=== PATIENT | female | born 1990 | race Caucasian/White ===

== ENCOUNTER 2017-04-23 16:57 | Emergency (ER) | payer MEDICAID ==
[~2017-04-23] VITALS: Ht 162.6 cm; Wt 64.0 kg
[~2017-04-23 16:57] MED LIST: ATOR20TA15 PO; NITR100C4 PO; VIST50CA PO; ZIPR20 PO; ZOLO25TA PO; iron infusion
[2017-04-23 17:50] VITALS: BP 114/56; PULSE 82; RESP 16; TEMP 98.8; O2SAT 100
--- NOTE | 2017-04-23 19:26 | PD ---
HPI Chief Complaint: Syncope/Near-Syncope Time Seen by Provider: 18:24 Travel History International Travel<30 days: No Contact w/Intl Traveler<30days: No Traveled to known affect area: No History of Present Illness HPI 26-year-old female was brought in by EMS for syncope. Patient has history of VSD with frequent syncopal episodes. Patient states that she usually had 3 syncopal episodes a week while she was . Patient had echocardiogram done by research instrumentation technician last year was found to have VSD. [place] Patient was advised to have surgery in the past however has not done so far. Patient states that she vaginal delivery about 4 months ago. Patient was advised to have HERBERTH done and surgery however has not done that so far. Patient was seen in emergency room a month ago and had a mandatory referral to research instrumentation technician for follow-up. Patient has not seen a research instrumentation technician since then. Patient had a single episode today. Patient states that she had dizziness and nausea and dry heaves and then pass out completely. Patient did not injure herself during episode. Patient has history of insulin-dependent diabetes on insulin pump, anemia. Patient states that she had echocardiogram done a few months ago in [place] and was negative for VSD. Patient denies any headache. Patient denies any neck pain. Patient denies any visual change. Patient denies any chest pain or short is of breath. Patient denies abdominal pain. Patient denies any focal weakness or numbness of extremity. PFSH Past Medical History Anemia: Yes Arthritis: Yes Bipolar Disorder: Yes Cardiovascular Problems: Yes (Vent septal Defect) Diabetes: Yes Patient Takes Glucophage: No Diminished Hearing: No Fibromyalgia: Yes Headaches: No Implanted Vascular Access Dvce: Yes (Port right 2017) Psychiatric: Yes (Hx of treatment for Bipolar Disorder and PTSD) ?: Not LMP: 04/17/17 : 3 Para: 3 Tubal Ligation: Yes (2017) Past Surgical History Section: Yes (X3) Cholecystectomy: Yes (2013) Insulin Pump: Yes Social History Alcohol Use: Yes (1/2 bottle liquor daily) Tobacco Use: No Substance Use: Yes Allergies-Medications (Allergen,Severity, Reaction): Coded Allergies: diphenhydramine (Verified Allergy, Severe, 03/27/17) sertraline (Verified Allergy, Severe, Hallucinations, 04/23/17) morphine (Verified Allergy, Unknown, hives, 03/27/17) Reported Meds & Prescriptions Reported Meds & Active Scripts Active Geodon (Ziprasidone) 20 Mg Cap 20 Mg PO BID Atorvastatin (Atorvastatin Calcium) 20 Mg Tab 20 Mg PO HS Reported [iron infusion] 1 Injection EVERY THREE MONTHS Vistaril (Hydroxyzine Pamoate) 50 Mg Cap 50 Mg PO TID Review of Systems General / Constitutional: No: Fever Eyes: No: Visual changes HENT: No: Headaches Cardiovascular: No: Chest Pain or Discomfort Respiratory: No: Shortness of Breath Gastrointestinal: No: Abdominal Pain Genitourinary: No: Dysuria Musculoskeletal: No: Pain Skin: No Rash Neurologic: Positive: Syncope, No: Weakness Psychiatric: No: Depression Endocrine: No: Polydipsia Hematologic/Lymphatic: No: Easy Bruising Physical Exam Narrative 26-year-old female with frequent syncopal episode. Reported history of VSD. Data Data Last Documented VS Vital Signs Date Time Temp Pulse Resp B/P (MAP) Pulse Ox O2 Delivery O2 Flow Rate FiO2 04/23/17 20:22 76 20 106/60 (75) 100 Room Air 04/23/17 17:50 98.8 Orders Orders Complete Blood Count With Diff (04/23/17 19:28) Basic Metabolic Panel (Bmp) (04/23/17 19:28) Iv Access Insert/Monitor (04/23/17 19:28) Ecg Monitoring (04/23/17 19:28) Oximetry (04/23/17 19:28) Electrocardiogram (04/23/17 ) Labs Laboratory Tests Test 04/23/17 19:50 White Blood Count 7.8 TH/MM3 Red Blood Count 4.04 MIL/MM3 Hemoglobin 11.3 GM/DL Hematocrit 34.5 % Mean Corpuscular Volume 85.6 FL Mean Corpuscular Hemoglobin 28.1 PG Mean Corpuscular Hemoglobin Concent 32.8 % Red Cell Distribution Width 13.0 % Platelet Count 319 TH/MM3 Mean Platelet Volume 9.4 FL Neutrophils (%) (Auto) 62.6 % Lymphocytes (%) (Auto) 24.5 % Monocytes (%) (Auto) 9.0 % Eosinophils (%) (Auto) 2.4 % Basophils (%) (Auto) 1.5 % Neutrophils # (Auto) 4.9 TH/MM3 Lymphocytes # (Auto) 1.9 TH/MM3 Monocytes # (Auto) 0.7 TH/MM3 Eosinophils # (Auto) 0.2 TH/MM3 Basophils # (Auto) 0.1 TH/MM3 CBC Comment DIFF FINAL Differential Comment Blood Urea Nitrogen 12 MG/DL Creatinine 0.68 MG/DL Random Glucose 270 MG/DL Calcium Level 8.4 MG/DL Sodium Level 138 MEQ/L Potassium Level 3.9 MEQ/L Chloride Level 103 MEQ/L Carbon Dioxide Level 28.9 MEQ/L Anion Gap 6 MEQ/L Estimat Glomerular Filtration Rate 104 ML/MIN MDM Medical Decision Making Medical Screen Exam Complete: Yes Emergency Medical Condition: Yes Medical Record Reviewed: Yes Interpretation(s) 21:25 PM. CBC within normal limit. BMP within normal limit. Glucose 270. Differential Diagnosis Differential diagnosis including vasovagal reaction, electrolyte imbalance, arrhythmia, TIA, CVA. Narrative Course 26-year-old female with frequent episodes of syncope. Reportedly history of VSD. I spoke with research instrumentation technician on-call today, Dr. carver. Advised to be follow-up with neurologist and research instrumentation technician. Diagnosis Primary Impression: Syncope Qualified Codes: R55 - Syncope and collapse Patient Instructions: General Instructions Additional Instructions: Advised patient not to drive. Follow-up with neurologist and therapist's assistant. Med/Other Pt SpecificInfo: No Change to Meds Disposition: 01 DISCHARGE HOME Condition: Stable Tee Santana MD Apr 23, 2017 19:26
[2017-04-23 20:20] LABS: AUTOMATED NEUTROPHIL # 4.9 TH/MM3 (1.8-7.7); BASOPHIL # 0.1 TH/MM3 (0-0.2); BASOPHIL % 1.5 % (0.0-2.0); EOSINOPHIL # 0.2 TH/MM3 (0-0.4); EOSINOPHIL % 2.4 % (0.0-4.0); HEMATOCRIT 34.5 % (35.0-46.0); HEMO FLAGS DIFF FINAL; LYMPH % 24.5 % (9.0-44.0); LYMPHOCYTE # 1.9 TH/MM3 (1.0-4.8); MEAN CELL VOLUME 85.6 FL (80.0-100.0); MEAN CORPUSCULAR HEMOGLOBIN 28.1 PG (27.0-34.0); MEAN CORPUSCULAR HGB CONC 32.8 % (32.0-36.0); NEUT % 62.6 % (16.0-70.0); PLATELET COUNT 319 TH/MM3 (150-450); RED BLOOD COUNT 4.04 MIL/MM3 (4.00-5.30); WHITE BLOOD COUNT 7.8 TH/MM3 (4.0-11.0)
[2017-04-23 20:22] VITALS: BP 106/60; PULSE 76; RESP 20; O2SAT 100
[2017-04-23 20:51] LABS: BICARBONATE 28.9 MEQ/L (21.0-32.0); POTASSIUM 3.9 MEQ/L (3.5-5.1)
--- NOTE | 2017-04-23 21:29 | EKG ---
Date Performed: 04/23/2017 Time Performed: 17:55:41 PTAGE: 26 years EKG: Sinus rhythm WITH SINUS ARRHYTHMIA POSSIBLE LEFT ATRIAL ENLARGEMENT BORDERLINE ECG PREVIOUS TRACING : 03/27/2017 22.49 Compared to prior tracing no significant change DOCTOR: Saeid Felipe Interpretating Date/Time 04/23/2017 21:27:30
== END 2017-04-23 22:20 | disposition home or self-care (01) ==
LOC: NEPD 16:57
DX: R55 Syncope and collapse (principal); Q21.0 Ventricular septal defect; R42 Dizziness and giddiness; R11.0 Nausea; I49.9 Cardiac arrhythmia, unspecified; E11.9 Type 2 diabetes mellitus without complications; D64.9 Anemia, unspecified; F31.9 Bipolar disorder, unspecified; M79.7 Fibromyalgia
CPT/HCPCS: 80048; 85025; 93005; 99284; J1642

== ENCOUNTER 2017-06-02 16:49 | Emergency (ER) | payer MEDICAID ==
[~2017-06-02] VITALS: Ht 149.9 cm; Wt 65.0 kg
[~2017-06-02 16:49] MED LIST changes: -NITR100C4 PO; -ZOLO25TA PO
[2017-06-02 16:56] VITALS: BP 115/66; PULSE 85; RESP 18; TEMP 98.7; O2SAT 99
[2017-06-02] MEDS ORDERED: INSULIN PUMP (17:02)
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
[2017-06-02] MEDS ORDERED: SODIUM CHLORIDE 0.9% FLUSH 10 ML FLUSH IVF PRN (17:15)
[2017-06-02 17:32] LABS: AUTOMATED NEUTROPHIL # 4.9 TH/MM3 (1.8-7.7); BASOPHIL % 0.7 % (0.0-2.0); EOSINOPHIL # 0.3 TH/MM3 (0-0.4); EOSINOPHIL % 3.7 % (0.0-4.0); HEMOGLOBIN 11.5 GM/DL (11.6-15.3); LYMPH % 16.1 % (9.0-44.0); LYMPHOCYTE # 1.1 TH/MM3 (1.0-4.8); MEAN CELL VOLUME 84.1 FL (80.0-100.0); MEAN CORPUSCULAR HEMOGLOBIN 26.9 PG (27.0-34.0); MEAN PLATELET VOLUME 9.1 FL (7.0-11.0); MONO % 10.1 % (0.0-8.0); MONOCYTE # 0.7 TH/MM3 (0-0.9); NEUT % 69.4 % (16.0-70.0); PLATELET COUNT 286 TH/MM3 (150-450); RED BLOOD COUNT 4.28 MIL/MM3 (4.00-5.30); RED CELL DISTRIBUTION WIDTH 14.4 % (11.6-17.2)
[2017-06-02 17:43] LABS: INTERNATIONAL NORMALIZED RATIO 1.1 RATIO
[2017-06-02 17:57] LABS: ALBUMIN 3.3 GM/DL (3.4-5.0); AST (GOT) 23 U/L (15-37); BICARBONATE 27.7 MEQ/L (21.0-32.0); BLOOD UREA NITROGEN 8 MG/DL (7-18); CALCIUM 8.2 MG/DL (8.5-10.1); CHLORIDE 108 MEQ/L (98-107); GLOMERULAR FILTRATION RATE 120 ML/MIN (>89); GLUCOSE,RANDOM 135 MG/DL (74-106); MAGNESIUM 1.6 MG/DL (1.5-2.5); SODIUM (NA) 140 MEQ/L (136-145)
[2017-06-02 17:58] LABS: ALT (GPT) 25 U/L (10-53)
[2017-06-02 18:02] LABS: ALKALINE PHOSPHATASE 97 U/L (45-117); TOTAL BILIRUBIN ADULT 0.3 MG/DL (0.2-1.0); TOTAL PROTEIN 7.6 GM/DL (6.4-8.2); TROPONIN I LESS THAN 0.02 NG/ML (0.02-0.05)
--- NOTE | 2017-06-02 18:18 | RADRPT ---
EXAM DATE/TIME: 06/02/2017 17:26 [facility] COMPARISON: CHEST SINGLE AP, March 27, 2017, 22:39. INDICATIONS : Chest pain. MEDICAL HISTORY : Anemia, Diabetes, Ventricular fibrillation. Not . SURGICAL HISTORY : Port placement. ENCOUNTER: Initial ACUITY: 1 day PAIN SCORE: 7/10 LOCATION: Bilateral chest FINDINGS: Single AP view of the chest. Right-sided [id number] remains in place. The lungs are clear. Cardiom ediastinal silhouette within normal limits. No evidence of pleural effusion or pneumothorax. CONCLUSION: No acute cardiopulmonary disease identified. Jese Jim MD on June 02, 2017 at 18:15 Board Certified Radiologist. This report was verified electronically.
[2017-06-02 20:13] VITALS: BP 121/63; TEMP 98.3
--- NOTE | 2017-06-03 07:35 | EKG ---
Date Performed: 06/02/2017 Time Performed: 17:00:31 PTAGE: 26 years EKG: Sinus rhythm NORMAL ECG NO PREVIOUS TRACING DOCTOR: Jeremiah Lira Interpretating Date/Time 06/03/2017 07:35:00
== END 2017-06-02 20:16 | disposition left against medical advice (07) ==
LOC: NEPC 16:49
DX: R55 Syncope and collapse (principal); R07.89 Other chest pain; E11.9 Type 2 diabetes mellitus without complications; Z79.4 Long term (current) use of insulin
CPT/HCPCS: 71010; 80053; 82550; 83735; 84484; 84703; 85025; 85610; 85730; 93005; 99285; J1642

== ENCOUNTER 2017-07-20 13:03 | Emergency (ER) | payer MEDICAID ==
[~2017-07-20] VITALS: Ht 149.9 cm; Wt 63.5 kg
[~2017-07-20 13:03] MED LIST changes: +INSULIN PUMP; -VIST50CA PO; -iron infusion
[2017-07-20 13:09] VITALS: BP 128/85; PULSE 100; RESP 14; TEMP 98.3; O2SAT 98
--- NOTE | 2017-07-20 14:04 | PD ---
HPI Chief Complaint: Medication Refill Request Time Seen by Provider: 13:33 Travel History International Travel<30 days: No Contact w/Intl Traveler<30days: No Traveled to known affect area: No History of Present Illness HPI 26-year-old female presents to the emergency department requesting a refill on insulin for her insulin pump. She just administered her last dose of insulin today, or to arrival, after her blood sugar check at home was 338. She says her primary care provider wrote her prescription wrong, her insulin run out sooner than normal. She denies symptoms of hyperglycemia. She has no other emergent medical complaints at this time. Denies chest pain, shortness of breath, abdominal pain, vomiting, fevers. Symptoms are mild in severity. No known aggravating or relieving factors. Onset prior to arrival. Duration approximately 2 hours. Primary care provider is [facility]. Allergies to Benadryl, morphine, sertraline. History of type 1 diabetes, ventral septal defect, severe anemia. Has no other medical complaints. No other modifying factors or associated signs and symptoms. PFSH Past Medical History Anemia: Yes Arthritis: Yes Asthma: Yes Bipolar Disorder: Yes Cardiovascular Problems: Yes Diabetes: Yes Patient Takes Glucophage: No Diminished Hearing: No Fibromyalgia: Yes Headaches: No Implanted Vascular Access Dvce: Yes (Port right 2017) Psychiatric: Yes (Hx of treatment for Bipolar Disorder and PTSD) Tetanus Vaccination: < 5 Years ?: Not LMP: 07/19/17 : 3 Para: 3 Tubal Ligation: Yes (2017) Past Surgical History Section: Yes (X3) Cholecystectomy: Yes (2013) Insulin Pump: Yes Social History Alcohol Use: Yes ("OCASSIONALLY) Tobacco Use: No Substance Use: No Allergies-Medications (Allergen,Severity, Reaction): Coded Allergies: diphenhydramine (Verified Allergy, Severe, 07/20/17) sertraline (Verified Allergy, Severe, Hallucinations, 07/20/17) morphine (Verified Allergy, Unknown, hives, 07/20/17) Reported Meds & Prescriptions Reported Meds & Active Scripts Active Geodon (Ziprasidone) 20 Mg Cap 20 Mg PO BID Reported [Insulin Pump] Review of Systems Except as stated in HPI: all other systems reviewed are Neg Physical Exam Narrative GENERAL: Well-nourished, well-developed female patient, in no acute distress SKIN: Warm and dry. HEAD: Atraumatic. Normocephalic. EYES: Pupils equal and round. No scleral icterus. No injection or drainage. ENT: Mucosa pink and moist. Airway patent. NECK: Trachea midline. CARDIOVASCULAR: Regular rate. RESPIRATORY: No accessory muscle use. GASTROINTESTINAL: Flat. MUSCULOSKELETAL: No obvious deformities. No clubbing. No cyanosis. No edema. NEUROLOGICAL: Awake and alert. Oriented 3. No obvious cranial nerve deficits. Motor grossly within normal limits. Normal speech. PSYCHIATRIC: Appropriate mood and affect; insight and judgment normal. Data Data Last Documented VS Vital Signs Date Time Temp Pulse Resp B/P (MAP) Pulse Ox O2 Delivery O2 Flow Rate FiO2 07/20/17 14:20 07/20/17 13:09 98.3 100 14 98 Orders Orders Ed Discharge Order (07/20/17 14:04) MDM Medical Decision Making Medical Screen Exam Complete: Yes Emergency Medical Condition: Yes Medical Record Reviewed: Yes Differential Diagnosis Medication refill, hyperglycemia, diabetes mellitus type 1 Narrative Course 26-year-old female with type 1 diabetes requesting refill on insulin for her insulin pump. BGM check in the ER is 141. Patient provided a written prescription for Humalog 1.45 units per hour via pump with an additional 120 units daily x30 days. Instructed patient to follow up with primary care provider. Patient verbalizes understanding and agreement with treatment plan. Patient is medically cleared and stable for discharge. Discussed reasons to return to the emergency department. Patient agrees with treatment plan. The patients vital signs are stable and the patient is stable for outpatient follow- up and treatment. Patient discharged home, stable and in no acute distress. Diagnosis Primary Impression: Medication refill Referrals: [employer] Primary Care Physician Patient Instructions: General Instructions, Medication Refill, ED Additional Instructions: Continue to check blood sugars as directed Insulin as prescribed Med/Other Pt SpecificInfo: Prescription(s) given Disposition: DISCHARGE HOME Condition: Stable Andie Ding Jul 20, 2017 14:04
== END 2017-07-20 14:20 | disposition home or self-care (01) ==
LOC: NEPD 13:03
DX: Z76.0 Encounter for issue of repeat prescription (principal); E10.8 Type 1 diabetes mellitus with unspecified complications
CPT/HCPCS: 99281

== ENCOUNTER 2017-08-12 10:01 | Emergency (ER) | payer MEDICAID ==
[~2017-08-12] VITALS: Ht 149.9 cm; Wt 67.0 kg
[~2017-08-12 10:01] MED LIST changes: -ATOR20TA15 PO
[2017-08-12 10:28] VITALS: BP 124/73; PULSE 119; RESP 17; TEMP 99; O2SAT 100
[2017-08-12] MEDS ORDERED: BACT800T5 PO (10:36)
[2017-08-12] MEDS ORDERED: ALBUAER3 INH (11:12)
[2017-08-12] MEDS ORDERED: BENZ100 PO (11:12)
[2017-08-12] MEDS ORDERED: AZIT250T3 PO (11:12)
--- NOTE | 2017-08-12 11:12 | PD ---
HPI Chief Complaint: Cold / Flu Symptoms Time Seen by Provider: 10:30 Travel History International Travel<30 days: No Contact w/Intl Traveler<30days: No Traveled to known affect area: No History of Present Illness HPI This is a 27-year-old female here with a productive cough 10 days. She reports her symptoms started as a mild URI with nasal congestion, sore throat and cough. All symptoms resolved with the exception of a cough which is now productive with green sputum. She denies fever chills. No chest pain or shortness of breath. Patient has history of asthma and insulin-dependent diabetes. She reports her blood sugars are slightly higher in the low 200s. No symptoms of hyperglycemia. She reports compliance with her meds. Severity is mild. PFSH Past Medical History Anemia: Yes Arthritis: Yes Asthma: Yes Bipolar Disorder: Yes Cardiovascular Problems: Yes Diabetes: Yes Patient Takes Glucophage: No Diminished Hearing: No Fibromyalgia: Yes Headaches: No Implanted Vascular Access Dvce: Yes (Port right 2017) Psychiatric: Yes (Hx of treatment for Bipolar Disorder and PTSD) Tetanus Vaccination: > 5 Years Influenza Vaccination: No ?: Not LMP: 08/12/17 : 3 Para: 3 Tubal Ligation: Yes (2017) Past Surgical History Section: Yes (X3) Cholecystectomy: Yes (2013) Insulin Pump: Yes Social History Alcohol Use: Yes ("OCASSIONALLY) Tobacco Use: No Substance Use: No Allergies-Medications (Allergen,Severity, Reaction): Coded Allergies: diphenhydramine (Verified Allergy, Severe, 08/12/17) sertraline (Verified Allergy, Severe, Hallucinations, 08/12/17) morphine (Verified Allergy, Unknown, hives, 08/12/17) Reported Meds & Prescriptions Reported Meds & Active Scripts Active Geodon (Ziprasidone) 20 Mg Cap 20 Mg PO BID Reported Bactrim DS (Sulfamethoxazole-Trimethoprim) 800-160 Mg Tab 1 Tab PO BID [Insulin Pump] Review of Systems Except as stated in HPI: all other systems reviewed are Neg General / Constitutional: No: Fever Eyes: No: Visual changes HENT: No: Headaches Cardiovascular: No: Chest Pain or Discomfort Respiratory: Positive: Cough Gastrointestinal: No: Abdominal Pain Genitourinary: No: Dysuria Physical Exam Narrative GENERAL: Alert and well-appearing 19-year-old female SKIN: Warm and dry. HEAD: Normocephalic. EYES: No scleral icterus. No injection or drainage. NECK: Supple CARDIOVASCULAR: Regular rate and rhythm. No murmur appreciated. Heart rate 98 RESPIRATORY: Breath sounds equal bilaterally. No accessory muscle use. Rhonchorous cough. GASTROINTESTINAL: Abdomen soft, non-tender, nondistended. MUSCULOSKELETAL: No cyanosis, or edema. BACK: Nontender without obvious deformity. No CVA tenderness. Data Data Last Documented VS Vital Signs Date Time Temp Pulse Resp B/P (MAP) Pulse Ox O2 Delivery O2 Flow Rate FiO2 08/12/17 10:28 99.0 119 17 124/73 (90) 100 MDM Medical Decision Making Medical Screen Exam Complete: Yes Emergency Medical Condition: Yes Differential Diagnosis Bronchitis, pneumonia, influenza, URI Narrative Course 19-year-old female here with a reported productive cough 10 days. She is nontoxic appearing. Vital signs are stable. Heart rate 98 on recheck. Patient be treated for bronchitis. Diagnosis Primary Impression: Bronchitis Referrals: Primary Care Physician Additional Instructions: Antibiotics as directed. Albuterol inhaler as needed. Tessalon Perles as needed. PRIMARY doctor Scripts Benzonatate (Tessalon Perles) 100 Mg Cap 200 MG PO TID Y for COUGH, #14 CAP 0 Refills Prov: Arleth Palafox 08/12/17 Albuterol 8.5 GM Inh (Proair Hfa 8.5 GM Inh) 90 Mcg/Act Aer 2 PUFF INH Q4-6H Y for SHORTNESS OF BREATH, #1 INHALER 0 Refills 108 mcg/actuation Prov: Arleth Palafox 08/12/17 Azithromycin (Azithromycin) 250 Mg Tab 250 MG PO DIRECTED for Infection, #6 TAB 0 Refills Take 2 tabs (500 mg) on day 1 then 1 tab daily x 4 days. Prov: rAleth Palafox 08/12/17 Disposition: 01 DISCHARGE HOME Condition: Stable Arleth Palaofx Aug 12, 2017 11:12
== END 2017-08-12 11:29 | disposition home or self-care (01) ==
LOC: NEPK 10:01
DX: J40 Bronchitis, not specified as acute or chronic (principal); D64.9 Anemia, unspecified; J45.909 Unspecified asthma, uncomplicated; E11.9 Type 2 diabetes mellitus without complications
CPT/HCPCS: 99283

== ENCOUNTER 2018-01-31 13:18 | Observation (INO) ==
--- NOTE | 2018-01-31 13:58 | ED ---
HPI General Chief Complaint: Chest Pain Stated Complaint: Evac/Chest Pain Time Seen by Provider: 01/31/18 13:42 Source: patient Mode of arrival: EMS History of Present Illness HPI narrative: 27 y/o female presents with complaint of midsternal chest pain with radiation to bilateral shoulders. She describes the pain as sharp in nature , with a maximum intensity of 8/10. She is unable to identify any aggravating or alleviating factors. She reports similar pain for the past few months, however pain has increased in severity and frequency over the past few weeks. She also complains of palpitations on exertion, fatigue, weakness, SOB, and nausea. She was seen by cardiology one year ago, with recommendation for a HERBERTH for evaluation of a possible valvular disorder. She has been unable to follow- up. She also reports increase in frequency and duration of menstrual cycle, with 7-8 day periods twice monthly. Complete Quality Measures for STEMI Alert Patients Related Data Home Medications Medication Instructions Recorded Confirmed insulin lispro [Humalog U-100 1 sliding scale dose SUB-Q UD 01/31/18 01/31/18 Insulin] Allergies Allergy/AdvReac Type Severity Reaction Status Date / Time diphenhydramine Allergy Severe Tachycardia Verified 01/31/18 13:42 sertraline Allergy Severe Hallucinati Verified 01/31/18 13:42 ons morphine Allergy Unknown hives Verified 01/31/18 13:42 [facility] Social History Social History Substance History: No History of Abuse Second Hand Smoke Exposure: No Smoking Status: Never smoker How Often Do You Have a Drink Containing Alcohol: Monthly or less Hx Recent Travel: No Recent Travel in [facility] within the Last 8 Weeks: No Recent Out of Country Travel within the Last 8 Weeks: No Exam Narrative Exam Narrative: GENERAL: Well-developed, overweight female in no acute distress. SKIN: Warm and dry. HEAD: Atraumatic. Normocephalic. EYES: Pupils equal and round. No scleral icterus. No injection or drainage. ENT: No nasal bleeding or discharge. Mucous membranes pink and moist. NECK: Trachea midline. No JVD. CARDIOVASCULAR: Regular rate and rhythm. RESPIRATORY: No accessory muscle use. Clear to auscultation. Breath sounds equal bilaterally. GASTROINTESTINAL: Abdomen soft, non-tender, nondistended. Hepatic and splenic margins not palpable. Insulin pump present in RLQ region. MUSCULOSKELETAL: Extremities without clubbing, cyanosis, or edema. No obvious deformities. NEUROLOGICAL: Awake and alert. No obvious cranial nerve deficits. Motor grossly within normal limits. Five out of 5 muscle strength in the arms and legs. Normal speech. PSYCHIATRIC: Appropriate mood and affect; insight and judgment normal. Course Initial Documented Vital Signs Temperature 98 F 01/31/18 13:43 Pulse Rate 66 01/31/18 13:43 Respiratory Rate 16 01/31/18 13:43 Blood Pressure 155/80 H 01/31/18 13:43 Pulse Oximetry 100 01/31/18 13:43 Last Documented Vital Signs Temperature 98 F 01/31/18 13:57 Pulse Rate 84 01/31/18 18:24 Respiratory Rate 18 01/31/18 15:45 Blood Pressure 110/50 L 01/31/18 15:45 Pulse Oximetry 100 01/31/18 15:45 Medical Decision Making MDM Narrative Medical decision making narrative: Lab work and EKG was unremarkable. Cardiac enzymes were negative. Planning to admit for further evaluation of her heart in the chest pain center. Medical Screen Exam Complete: Yes Emergency Medical Condition: Yes Lab Data Lab results reviewed: Yes I reviewed the patient's lab results. Result diagrams: 01/31/18 14:17 01/31/18 14:12 POC Results POC Urine Results Negative Lab Results 01/31/18 01/31/18 01/31/18 Range/Units 14:12 14:17 14:17 WBC 5.7 (4.0-11.0) th/mm3 RBC 4.32 (4.00-5.30) mil/mm3 Hgb 9.9 L (11.6-15.3) gm/dL Hct 32.5 L (35.0-46.0) % MCV 75.3 L (80.0-100.0) fL MCH 23.0 L (27.0-34.0) pg MCHC 30.5 L (32.0-36.0) % RDW 16.0 (11.6-17.2) % Plt Count 287 (150-450) th/mm3 MPV 9.1 (7.0-11.0) fL Neut % (Auto) 65.2 (16.0-70.0) % Lymph % (Auto) 21.3 (9.0-44.0) % [place] % (Auto) 10.3 H (0.0-8.0) % Eos % (Auto) 2.0 (0.0-4.0) % Baso % (Auto) 1.2 (0.0-2.0) % Neut # (Auto) 3.7 (1.8-7.7) th/mm3 Lymph # (Auto) 1.2 (1.0-4.8) th/mm3 [place] # (Auto) 0.6 (0.0-0.9) th/mm3 Eos # (Auto) 0.1 (0.0-0.4) th/mm3 Baso # (Auto) 0.1 (0.0-0.2) th/mm3 WBC Differential . Differential Comment Auto diff final PT 10.8 (9.8-11.6) sec INR 1.1 Ratio APTT 21.8 L (24.3-30.1) sec D-Dimer Quant (PE/DVT) 0.21 (0.00-0.50) mg/L FEU Sodium 137 (136-145) meq/L Potassium 3.9 (3.5-5.1) meq/L Chloride 104 (98-107) meq/L Carbon Dioxide 25.3 (21.0-32.0) meq/L Anion Gap 8 (5-15) meq/L BUN 9 (7-18) mg/dL Creatinine 0.77 (0.50-1.00) mg/dL Estimated GFR 89 (>89) mL/min POC Glucose (68-110) mg/dl Random Glucose 248 H (74-106) mg/dL Calcium 8.9 (8.5-10.1) mg/dL Total Bilirubin 0.4 (0.2-1.0) mg/dL AST 15 (15-37) U/L ALT 15 (10-53) U/L Alkaline Phosphatase 82 (45-117) U/L Total Creatine Kinase (26-192) U/L Troponin I Less than 0.02 L (0.02-0.05) ng/mL Total Protein 7.9 (6.4-8.2) g/dL Albumin 3.5 (3.4-5.0) g/dL 01/31/18 01/31/18 01/31/18 Range/Units 16:55 17:35 18:46 WBC (4.0-11.0) th/mm3 RBC (4.00-5.30) mil/mm3 Hgb (11.6-15.3) gm/dL Hct (35.0-46.0) % MCV (80.0-100.0) fL MCH (27.0-34.0) pg MCHC (32.0-36.0) % RDW (11.6-17.2) % Plt Count (150-450) th/mm3 MPV (7.0-11.0) fL Neut % (Auto) (16.0-70.0) % Lymph % (Auto) (9.0-44.0) % [place] % (Auto) (0.0-8.0) % Eos % (Auto) (0.0-4.0) % Baso % (Auto) (0.0-2.0) % Neut # (Auto) (1.8-7.7) th/mm3 Lymph # (Auto) (1.0-4.8) th/mm3 [place] # (Auto) (0.0-0.9) th/mm3 Eos # (Auto) (0.0-0.4) th/mm3 Baso # (Auto) (0.0-0.2) th/mm3 WBC Differential Differential Comment PT (9.8-11.6) sec INR Ratio APTT (24.3-30.1) sec D-Dimer Quant (PE/DVT) (0.00-0.50) mg/L FEU Sodium (136-145) meq/L Potassium (3.5-5.1) meq/L Chloride (98-107) meq/L Carbon Dioxide (21.0-32.0) meq/L Anion Gap (5-15) meq/L BUN (7-18) mg/dL Creatinine (0.50-1.00) mg/dL Estimated GFR (>89) mL/min POC Glucose 70 109 (68-110) mg/dl Random Glucose (74-106) mg/dL Calcium (8.5-10.1) mg/dL Total Bilirubin (0.2-1.0) mg/dL AST (15-37) U/L ALT (10-53) U/L Alkaline Phosphatase (45-117) U/L Total Creatine Kinase 57 (26-192) U/L Troponin I Less than 0.02 L (0.02-0.05) ng/mL Total Protein (6.4-8.2) g/dL Albumin (3.4-5.0) g/dL Imaging Data Attestation: I personally reviewed and interpreted this imaging study as follows : Radiologist's impression: Chest X-Ray 01/31/18 13:42 CONCLUSION: No acute cardiopulmonary disease. Discharge Plan Discharge Disposition Patient Disposition: 30 Still Patient Discharge Condition Condition: Stable Discharge Details Anticipated Discharge Date: 01/31/18 Diagnosis: Chest pain Physicians Team ED Provider: Mathieu Barron Primary Care Provider: UNKNOWN, Attending Provider: Joann Bolden Discharge Interventions Interventions: ED Discharge Assessment Last Done: 01/31/18 17:29 Vital Signs Last Done: 01/31/18 15:45 Status ED Status: Left Department Discharge Information Discharge Date/Time: 01/31/18 17:29
--- NOTE | 2018-01-31 14:35 | XR ---
EXAM DATE: 01/31/2018 1:59 PM EDT AGE/SEX: 27 years / Female INDICATIONS: Chest pain and shortness of breath. CLINICAL DATA: This is the patient's initial encounter. Patient reports that signs and symptoms have been present for 1 day and indicates a pain score of 7/10. MEDICAL/SURGICAL HISTORY: Diabetes mellitus type I. . Insulin pump. Port. COMPARISON: C, CHEST SINGLE AP, 06/02/2017. . FINDINGS: The lungs are clear without infiltrate, nodule, or mass. There is no appreciable pleural effusion for technique. Heart and mediastinum are unremarkable. Right IJ [id number] is present wi th tip overlapping the expected region of the SVC. CONCLUSION: No acute cardiopulmonary disease. Electronically signed by: Curtis Saenz MD 01/31/2018 2:33 PM EDT
[2018-01-31 14:46] LABS: Baso # (Auto) 0.1 th/mm3 (0.0-0.2); Baso % (Auto) 1.2 % (0.0-2.0); Eos # (Auto) 0.1 th/mm3 (0.0-0.4); Hematocrit 32.5 % (35.0-46.0); Hemoglobin 9.9 gm/dL (11.6-15.3); Lymph # (Auto) 1.2 th/mm3 (1.0-4.8); Lymph % (Auto) 21.3 % (9.0-44.0); Mean Corpuscular Volume 75.3 fL (80.0-100.0); Mean Platelet Volume 9.1 fL (7.0-11.0); Mono # (Auto) 0.6 th/mm3 (0.0-0.9); Mono % (Auto) 10.3 % (0.0-8.0); Neut # (Auto) 3.7 th/mm3 (1.8-7.7); Neut % (Auto) 65.2 % (16.0-70.0); Platelet Count 287 th/mm3 (150-450); Red Blood Count 4.32 mil/mm3 (4.00-5.30); White Blood Count 5.7 th/mm3 (4.0-11.0)
[2018-01-31] MEDS ORDERED: Aspirin 325 MG Tablet PO ONE (14:46)
[2018-01-31 14:55] LABS: Albumin 3.5 g/dL (3.4-5.0); Anion Gap 8 meq/L (5-15); Aspartate Aminotransferase 15 U/L (15-37); Blood Urea Nitrogen 9 mg/dL (7-18); Calcium 8.9 mg/dL (8.5-10.1); Carbon Dioxide 25.3 meq/L (21.0-32.0); Chloride 104 meq/L (98-107); Glomerular Filtration Rate 89 mL/min (>89); Glucose,Random 248 mg/dL (74-106); Potassium 3.9 meq/L (3.5-5.1); Sodium 137 meq/L (136-145)
[2018-01-31 14:56] LABS: Alanine Aminotransferase 15 U/L (10-53)
[2018-01-31 14:58] LABS: Mean Corpuscular HGB Conc 30.5 % (32.0-36.0)
[2018-01-31 15:00] LABS: Alkaline Phosphatase 82 U/L (45-117); Total Protein 7.9 g/dL (6.4-8.2)
[2018-01-31 15:07] LABS: Activated Partial Thrombo Time 21.8 sec (24.3-30.1); D-Dimer 0.21 mg/L FEU (0.00-0.50); INR 1.1 Ratio; Prothrombin Time 10.8 sec (9.8-11.6)
[2018-01-31] MEDS ORDERED: Acetaminophen 500 MG Tablet PO PRN (16:31)
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
[2018-01-31] MEDS ORDERED: Dextrose 50% in Water 50 ML Vial IV.PUSH PRN (17:58)
[2018-01-31 18:24] LABS: Creatine Kinase 57 U/L (26-192)
[2018-01-31] MEDS: Insulin NovoLOG Aspart Correctional Sugar Inj SQ SCH ×2 (18:48→22:22)
[2018-01-31 21:33] LABS: Creatine Kinase 67 U/L (26-192)
--- NOTE | 2018-02-01 08:54 | P.PNCA ---
Subjective Interval history: Reports rare intermittent sharp substernal chest discomfort overnight, not as severe as past episodes. Otherwise, reports sleeping well overnight and states she would like to go home later today. Physical Exam Vital signs: Vital Signs 01/31/18 13:43 01/31/18 13:57 01/31/18 14:04 Temperature 98 F 98 F Pulse Rate 66 66 Respiratory Rate 16 16 Blood Pressure 155/80 H 155/80 H Pulse Oximetry 100 100 100 01/31/18 15:45 01/31/18 18:24 01/31/18 19:00 Temperature 99.7 F H Pulse Rate 77 84 85 Respiratory Rate 18 17 Blood Pressure 110/50 L 120/62 Pulse Oximetry 100 99 01/31/18 23:00 02/01/18 03:00 02/01/18 07:00 Temperature 97.9 F 97.7 F 97.7 F Pulse Rate 75 79 72 Respiratory Rate 18 17 16 Blood Pressure 116/69 101/63 128/70 Pulse Oximetry 100 98 98 Intake & Output 01/31/18 02/01/18 02/01/18 18:59 06:59 18:59 Weight 65.771 kg 63.1 kg Narrative: Very pleasant female easily awakens from sleep in no acute distress. - Constitutional no acute distress - Routine HEENT Exam Head: Present: normocephalic, atraumatic - Routine Respiratory Exam Present: CTA bilaterally. Absent: rhonchi, stridor, wheezes, crackles - Routine Cardiovascular Exam Present: RRR (soft systolic murmur), murmur Assessment and Plan - Assessment (1) Atypical chest pain Code(s): R07.89 - Other chest pain Status: Acute Plan: Admitted to chest pain center. ACS ruled out overnight with 3 sets of ekgs and cardiac enzymes. Seen and evaluated by Dr. Lalo Nuñez. Proceed with lexiscan this morning. If unremarkable, plans are to discharge home with follow up with PCP. Agreeable to plan of care and verbalized understanding. (2) Type 1 diabetes mellitus Code(s): E10.9 - Type 1 diabetes mellitus without complications Status: Chronic Plan: Ask patient to shut off insulin pump during admission. SSI moderate dose coverage and hypoglycemic protocol. Reports last HGA1C to be 8% with last couple of week glucose to be elevated. Continue to monitor. Start on ALESHA inhibitor and follow up with primary care provider upon discharge. (3) Anemia Code(s): D64.9 - Anemia, unspecified Status: Chronic Plan: HH 9.9/32.5. Follow up with primary care provider as previously planned. Previously diagnosed with anemia. (4) Hyperlipidemia Code(s): E78.5 - Hyperlipidemia, unspecified Status: Chronic Plan: Discussed benefits of statin therapy with known diabetes. Discuss with primary care provider upon discharge. (5) Irregular menstrual cycle Code(s): N92.6 - Irregular menstruation, unspecified Status: Chronic Plan: Follow-up with primary care provider and/or BAG SHAKER, discussed recent increase in irregular menstrual cycle likely contributing to anemia. (2) Type 1 diabetes mellitus Qualifiers: Diabetes mellitus complication status: without complication Qualified Code(s) : E10.9 - Type 1 diabetes mellitus without complications (3) Anemia Qualifiers: Anemia type: unspecified type Qualified Code(s): D64.9 - Anemia, unspecified (4) Hyperlipidemia Qualifiers: Hyperlipidemia type: unspecified Qualified Code(s): E78.5 - Hyperlipidemia, unspecified
[2018-02-01] MEDS ORDERED: Aspirin 325 MG Tablet PO SCH (09:00)
[2018-02-01] MEDS ORDERED: Lisinopril 5 MG Tablet PO SCH (09:00)
[2018-02-01] MEDS: Insulin NovoLOG Aspart Correctional Sugar Inj SQ SCH ×2 (10:22→13:43)
[2018-02-01] MEDS ORDERED: Regadenoson Inj 0.4 MG/5 ML Syringe IV.PUSH ONE (11:56)
--- NOTE | 2018-02-01 12:44 | ECG ---
Date Performed: 02/01/2018 Time Performed: 04:37:57 PTAGE: 27 years EKG: Sinus rhythm NORMAL ECG PREVIOUS TRACING : 01/31/2018 20.20 DOCTOR: [employer] Interpretating Date/Time 02/01/2018 12:43:17
--- NOTE | 2018-02-01 13:30 | NM ---
EXAM DATE: 02/01/2018 1:18 PM EDT AGE/SEX: 27 years / Female INDICATIONS:Angina. . Chest pain, dyspnea, and fatigue. CLINICAL DATA: This is the patient's initial encounter. Patient reports that signs and symptoms have been present for 2 weeks and indicates a pain score of 3/10. MEDICAL/SURGICAL HISTORY: Anemia. Asthma. Diabetes. Anxiety, fibromyalgia, PTSD. Cholecyste ctomy. x3, Insulin pump placement. COMPARISON: No prior exams available for comparison. No external comparison. DOSE: 8.7 mCi Tc 99m Myoview at rest 32.5 mCi [id number] at stress 0.4 mg Lexiscan STRESS SYMPTOMS: Shortness of breath, chest pressure, nausea, flushing. EJECTION FRACTION: >70 % TECHNIQUE: The patient underwent pharmacologic stress with infusion of prescribed dose. Continuous ECG tracing was monitored during stress. Gated SPECT imaging was performed after stress and conventi onal SPECT imaging was performed at rest. The examination was performed on a SPECT/CT scanner, both attenuation and non-corrected datasets were reviewed. FINDINGS: Distribution: The maximum perfused segment at stress is in the inferior wall. Perfusion Study: The pattern of perfusion at stress is within normal limits. No fixed or reversible perfusion defect is identified. Gated Study: There are intact wall motion and wall thickening without hypokinetic or dyskinetic segm ents. The ejection fraction is calculated at >70%. RISK CATEGORY: Low (<1% Annual Motality Rate) CONCLUSION: 1. Left ventricle perfusion is within normal limits. No fixed or reversible perfusion defect is iden tified. 2. Normal left ventricle wall motion and ejection fraction. Electronically signed by: Leonardo Alvares MD 02/01/2018 1:28 PM EDT
--- NOTE | 2018-02-01 14:04 | P.PNCA ---
Subjective Interval history: 27-year-old lady with type 1 diabetes since age 4 presented by the nurse practitioner and subsequently seen and evaluated personally. Her documentation was reviewed her laboratory radiographic and electrocardiographic data was also reviewed personally. I am in agreement with documentation as entered. Patient is not a candidate for exercise stress testing will be evaluated evaluated using nuclear stress test. Physical Exam Vital signs: Vital Signs 01/31/18 14:04 01/31/18 15:45 01/31/18 18:24 Temperature Pulse Rate 77 84 Respiratory Rate 18 Blood Pressure 110/50 L Pulse Oximetry 100 100 01/31/18 19:00 01/31/18 23:00 02/01/18 03:00 Temperature 99.7 F H 97.9 F 97.7 F Pulse Rate 85 75 79 Respiratory Rate 17 18 17 Blood Pressure 120/62 116/69 101/63 Pulse Oximetry 99 100 98 02/01/18 07:00 02/01/18 11:00 Temperature 97.7 F 97.6 F Pulse Rate 72 82 Respiratory Rate 16 16 Blood Pressure 128/70 135/76 Pulse Oximetry 98 100 Intake & Output 01/31/18 02/01/18 02/01/18 18:59 06:59 18:59 Weight 65.771 kg 63.1 kg Narrative: Well-nourished well-developed fairly heavily tattooed young woman in no acute distress head eyes ears nose and throat are unremarkable chest clear to auscultation abdomen soft nontender extremities no clubbing cyanosis or edema. Assessment and Plan - Assessment (1) Atypical chest pain Code(s): R07.89 - Other chest pain Status: Acute Plan: Admitted to chest pain center. Continue ACS protocol. Will be seen and evaluated by Dr. Lalo Nuñez in a.m. Reassurance provided discomfort likely not cardiac related however due to history of type I diabetes will monitor overnight. Agreeable to plan of care. Further recommendations to follow. (2) Type 1 diabetes mellitus Code(s): E10.9 - Type 1 diabetes mellitus without complications Status: Chronic Plan: Ask patient to shut off insulin pump during admission. SSI moderate dose coverage and hypoglycemic protocol. Reports last HGA1C to be 8% with last couple of week glucose to be elevated. Continue to monitor. Start on ALESHA inhibitor and follow up with primary care provider upon discharge. (3) Anemia Code(s): D64.9 - Anemia, unspecified Status: Chronic Plan: HH 9.9/32.5. Follow up with primary care provider as previously planned. Previously diagnosed with anemia. (4) Hyperlipidemia Code(s): E78.5 - Hyperlipidemia, unspecified Status: Chronic Plan: Discussed benefits of statin therapy with known diabetes. Discuss with primary care provider upon discharge. (5) Irregular menstrual cycle Code(s): N92.6 - Irregular menstruation, unspecified Status: Chronic Plan: Follow-up with primary care provider and/or CITY PLANNING AIDE, discussed recent increase in irregular menstrual cycle likely contributing to anemia. (2) Type 1 diabetes mellitus Qualifiers: Diabetes mellitus complication status: without complication Qualified Code(s) : E10.9 - Type 1 diabetes mellitus without complications (3) Anemia Qualifiers: Anemia type: unspecified type Qualified Code(s): D64.9 - Anemia, unspecified (4) Hyperlipidemia Qualifiers: Hyperlipidemia type: unspecified Qualified Code(s): E78.5 - Hyperlipidemia, unspecified
[2018-02-01] MEDS ORDERED: Heparin Central Flush 100 UNIT/ML 5 ML Vial IV.FLUSH ONE (15:32)
--- NOTE | 2018-02-01 15:48 | ECG ---
Date Performed: 01/31/2018 Time Performed: 20:20:16 PTAGE: 27 years EKG: Sinus rhythm NORMAL ECG PREVIOUS TRACING : 01/31/2018 17.47 DOCTOR: Lalo Nuñez Interpretating Date/Time 02/01/2018 15:47:01
--- NOTE | 2018-02-01 15:48 | ECG ---
Date Performed: 01/31/2018 Time Performed: 17:47:09 PTAGE: 27 years EKG: Sinus rhythm NORMAL ECG PREVIOUS TRACING : 01/31/2018 14.22 DOCTOR: Lalo Nuñez Interpretating Date/Time 02/01/2018 15:47:12
--- NOTE | 2018-02-01 15:49 | ECG ---
Date Performed: 01/31/2018 Time Performed: 14:22:26 PTAGE: 27 years EKG: Sinus rhythm WITH SINUS ARRHYTHMIA NORMAL ECG PREVIOUS TRACING : 06/02/2017 17.00 DOCTOR: Lalo Nuñez Interpretating Date/Time 02/01/2018 15:48:30
--- NOTE | 2018-02-01 15:56 | TR ---
Date Performed: 02/01/2018 Time Performed: 12:01:58 DOCTOR: Lalo Nuñez DRUG LIST: CLINICAL HISTORY: REASON FOR TEST: CHEST PAIN REASON FOR ENDING: OBSERVATION: CONCLUSION: Patient exercised using the Viral protocol. No electrocardiographic changes were see n to suggest ischemia. Hemodynamic response to exercise was normal. No significant arrhythmia was pre sent. COMMENTS:
== END 2018-02-01 16:15 | disposition home or self-care (01) ==
LOC: NEDA 13:18 → NEPE 13:18 → NEPGCP 17:08
PROVIDERS: ADMIT Internal Medicine Interventional Cardiology; ATTEND Internal Medicine Interventional Cardiology

== ENCOUNTER 2018-05-09 15:28 | Inpatient (IN) ==
--- NOTE | 2018-05-09 15:46 | ED ---
HPI General Chief complaint: Weakness Stated complaint: syncopal episode Time Seen by Provider: 05/09/18 15:41 Source: patient Mode of arrival: EMS Limitations: no limitations History of Present Illness HPI narrative: This 27-year-old female is brought by paramedics after having a syncopal episode. She does have medical issues. She has been diabetic for about 23 years. Her blood sugar was elevated when she was going to the infusion center and she took some extra insulin. At the infusion center she was feeling weak and lightheaded and she believes she passed out. She has had syncope in the past. She did not have any chest pain. He does have a history of anemia. She saw Dr. Barton on Saturday and was told to go to the infusion center today for iron infusion. She has been anemic for some time. She has had 2 blood transfusions in the past and has had iron infusions before. She has not received any medication prior to having a syncopal episode Related Data Home Medications Medication Instructions Recorded Confirmed insulin lispro [Humalog U-100 1 sliding scale dose SUB-Q UD 01/31/18 05/09/18 Insulin] ziprasidone HCl [Geodon] 20 mg PO BID 05/09/18 05/09/18 Allergies Allergy/AdvReac Type Severity Reaction Status Date / Time diphenhydramine Allergy Severe Tachycardia Verified 05/09/18 15:33 sertraline Allergy Severe Hallucinati Verified 05/09/18 15:33 ons morphine Allergy Unknown hives Verified 05/09/18 15:33 Review of Systems Constitutional Reports fatigue and Reports weakness Cardiovascular Reports syncope [facility] Medical History Medical History Anemia (Acute) Anxiety (Acute) Asthma (Acute) Depression (Acute) Diabetes type I (Acute) Elevated lipids (Acute) Fibromyalgia (Acute) Injury, self-inflicted (Acute) Insulin pump in place (Acute) PTSD (post-traumatic stress disorder) (Acute) Port-A-Cath in place (Acute) Suicide ideation (Acute) Surgical History Surgical History History of section (Acute) Hx of cholecystectomy (Acute) Social History Social History Substance History: No History of Abuse Second Hand Smoke Exposure: No Smoking Status: Never smoker How Often Do You Have a Drink Containing Alcohol: 2 to 4 times a month Hx Recent Travel: No Recent Out of Country Travel within the Last 8 Weeks: No Immunization History Tetanus Immunization: <5 Years Exam Narrative Exam Narrative: GENERAL: Well-developed female SKIN: Focused skin assessment warm/dry. HEAD: Atraumatic. Normocephalic. EYES: Pupils equal and round. No scleral icterus. No injection or drainage. ENT: No nasal bleeding or discharge. Mucous membranes pink and moist. NECK: Trachea midline. No JVD. CARDIOVASCULAR: Regular rate and rhythm. No murmur appreciated. RESPIRATORY: No accessory muscle use. Clear to auscultation. Breath sounds equal bilaterally. GASTROINTESTINAL: Abdomen soft, non-tender, nondistended. Hepatic and splenic margins not palpable. MUSCULOSKELETAL: No obvious deformities. No clubbing. No cyanosis. No edema. NEUROLOGICAL: Awake and alert. No obvious cranial nerve deficits. Motor grossly within normal limits. Normal speech. PSYCHIATRIC: Appropriate mood and affect; insight and judgment normal. Course Initial Documented Vital Signs Temperature 98.2 F 05/09/18 15:31 Pulse Rate 63 05/09/18 15:31 Respiratory Rate 18 05/09/18 15:31 Blood Pressure 128/75 05/09/18 15:31 Pulse Oximetry 100 05/09/18 15:31 Last Documented Vital Signs Temperature 98.2 F 05/09/18 15:31 Pulse Rate 85 05/09/18 18:44 Respiratory Rate 18 05/09/18 18:44 Blood Pressure 117/61 05/09/18 18:44 Pulse Oximetry 99 05/09/18 18:44 Critical Care Time Critical Care Time: No Medical Decision Making MDM Narrative Medical decision making narrative: Patient has syncope anemia and hypermenorrhea. Patient's hemoglobin is slightly above 8 however with the hypermenorrhea clinically she is less than 8 for her hemoglobin. Patient is being transfused and will be followed by DIRECTOR CAREER and hematology Medical Screen Exam Complete: Yes Emergency Medical Condition: Yes Differential Diagnosis Differential Diagnosis: Differential includes syncope, anemia, vasovagal syncope Lab Data Result diagrams: 05/09/18 16:00 05/09/18 16:00 Lab Results 05/09/18 05/09/18 05/09/18 Range/Units 15:50 16:00 16:00 CBC w Diff Slide review pending WBC 5.4 (4.0-11.0) th/mm3 RBC 4.06 (4.00-5.30) mil/mm3 Hgb 8.2 L (11.6-15.3) gm/dL Hct 27.4 L (35.0-46.0) % MCV 67.5 L (80.0-100.0) fL MCH 20.3 L (27.0-34.0) pg MCHC 30.0 L (32.0-36.0) % RDW 16.7 (11.6-17.2) % Plt Count 295 (150-450) th/mm3 MPV 8.0 (7.0-11.0) fL Neut % (Auto) 67.6 (16.0-70.0) % Lymph % (Auto) 21.1 (9.0-44.0) % Christian % (Auto) 8.6 H (0.0-8.0) % Eos % (Auto) 1.8 (0.0-4.0) % Baso % (Auto) 0.9 (0.0-2.0) % Neut # (Auto) 3.7 (1.8-7.7) th/mm3 Lymph # (Auto) 1.1 (1.0-4.8) th/mm3 Christian # (Auto) 0.5 (0.0-0.9) th/mm3 Eos # (Auto) 0.1 (0.0-0.4) th/mm3 Baso # (Auto) 0.0 (0.0-0.2) th/mm3 WBC Differential . Diff Scan Auto diff confirmed Differential Comment . Platelet Estimate Normal (Normal) Platelet Morphology Normal (Normal) PT (9.8-11.6) sec INR Ratio APTT (23.4-31.7) sec Fibrinogen (227-377) mg/dL Sodium 140 (136-145) meq/L Potassium 3.9 (3.5-5.1) meq/L Chloride 107 (98-107) meq/L Carbon Dioxide 26.2 (21.0-32.0) meq/L Anion Gap 7 (5-15) meq/L BUN 5 L (7-18) mg/dL Creatinine 0.72 (0.50-1.00) mg/dL Estimated GFR Greater than 89 (>89) mL/min Random Glucose 199 H (74-106) mg/dL Calcium 8.3 L (8.5-10.1) mg/dL Magnesium 2.0 (1.5-2.5) mg/dL Total Bilirubin 0.4 (0.2-1.0) mg/dL AST 14 L (15-37) U/L ALT 14 (10-53) U/L Alkaline Phosphatase 73 (45-117) U/L Troponin I Less than 0.02 L (0.02-0.05) ng/mL Total Protein 7.5 (6.4-8.2) g/dL Albumin 3.3 L (3.4-5.0) g/dL Urine Color Yellow (Yellw/Straw) Urine Clarity Clear (Clear) Urine pH 6.5 (5.0-8.5) Ur Specific Steele Less/equal 1.005 (1.002-1.035) Urine Protein Negative (Neg-Trace) mg/dL Urine Glucose (UA) 250 H (Negative) mg/dL Urine Ketones Negative (Negative) mg/dL Urine Occult Blood Moderate H (Negative) Urine Nitrate Negative (Negative) Urine Bilirubin Negative (Negative) Urine Urobilinogen 0.2 (Less than 2) mg/dL Ur Leukocyte Esterase Negative (Negative) Urine RBC 0-3 (0-3) /hpf Ur Squamous Epith Cells 0-5 (0-5) /hpf Micro UA Comment Culture not ind Ur Microscopic Review Microscopic reviewed Urine Culture Comments Culture not ind Blood Type Antibody Screen 05/09/18 05/09/18 05/09/18 Range/Units 16:00 16:00 18:35 CBC w Diff WBC (4.0-11.0) th/mm3 RBC (4.00-5.30) mil/mm3 Hgb (11.6-15.3) gm/dL Hct (35.0-46.0) % MCV (80.0-100.0) fL MCH (27.0-34.0) pg MCHC (32.0-36.0) % RDW (11.6-17.2) % Plt Count (150-450) th/mm3 MPV (7.0-11.0) fL Neut % (Auto) (16.0-70.0) % Lymph % (Auto) (9.0-44.0) % Christian % (Auto) (0.0-8.0) % Eos % (Auto) (0.0-4.0) % Baso % (Auto) (0.0-2.0) % Neut # (Auto) (1.8-7.7) th/mm3 Lymph # (Auto) (1.0-4.8) th/mm3 Christian # (Auto) (0.0-0.9) th/mm3 Eos # (Auto) (0.0-0.4) th/mm3 Baso # (Auto) (0.0-0.2) th/mm3 WBC Differential Diff Scan Differential Comment Platelet Estimate (Normal) Platelet Morphology (Normal) PT 10.9 (9.8-11.6) sec INR 1.1 Ratio APTT 20.2 L (23.4-31.7) sec Fibrinogen 287 (227-377) mg/dL Sodium (136-145) meq/L Potassium (3.5-5.1) meq/L Chloride (98-107) meq/L Carbon Dioxide (21.0-32.0) meq/L Anion Gap (5-15) meq/L BUN (7-18) mg/dL Creatinine (0.50-1.00) mg/dL Estimated GFR (>89) mL/min Random Glucose (74-106) mg/dL Calcium (8.5-10.1) mg/dL Magnesium (1.5-2.5) mg/dL Total Bilirubin (0.2-1.0) mg/dL AST (15-37) U/L ALT (10-53) U/L Alkaline Phosphatase (45-117) U/L Troponin I (0.02-0.05) ng/mL Total Protein (6.4-8.2) g/dL Albumin (3.4-5.0) g/dL Urine Color (Yellw/Straw) Urine Clarity (Clear) Urine pH (5.0-8.5) Ur Specific Steele (1.002-1.035) Urine Protein (Neg-Trace) mg/dL Urine Glucose (UA) (Negative) mg/dL Urine Ketones (Negative) mg/dL Urine Occult Blood (Negative) Urine Nitrate (Negative) Urine Bilirubin (Negative) Urine Urobilinogen (Less than 2) mg/dL Ur Leukocyte Esterase (Negative) Urine RBC (0-3) /hpf Ur Squamous Epith Cells (0-5) /hpf Micro UA Comment Ur Microscopic Review Urine Culture Comments Blood Type B Positive Antibody Screen Negative Discharge Plan Discharge Disposition Patient Disposition: ED Admit(ED Internal Use Only) Discharge Condition Condition: Stable Discharge Details Diagnosis: Syncope, Anemia, Hypermenorrhea Physicians Team ED Provider: Jese Rose Primary Care Provider: Nahomy Estes, Attending Provider: Marvin Cagle Status ED Status: Admitted Observation Patient
[2018-05-09 16:16] LABS: Bilirubin,Urine Negative (Negative); Clarity,Urine Clear (Clear); Color,Urine Yellow (Yellw/Straw); Glucose,Urine (UA) 250 mg/dL (Negative); Leukocyte Esterase,Urine Negative (Negative); Nitrite,Urine Negative (Negative); PH,Urine 6.5 (5.0-8.5); Specific Gravity,Urine Less/Equal 1.005 (1.002-1.035); Urobilinogen,Urine 0.2 mg/dL (Less than 2)
[2018-05-09 16:16] LABS: Baso % (Auto) 0.9 % (0.0-2.0); Eos # (Auto) 0.1 th/mm3 (0.0-0.4); Eos % (Auto) 1.8 % (0.0-4.0); Hematocrit 27.4 % (35.0-46.0); Hemoglobin 8.2 gm/dL (11.6-15.3); Lymph # (Auto) 1.1 th/mm3 (1.0-4.8); Lymph % (Auto) 21.1 % (9.0-44.0); Mean Corpuscular Hemoglobin 20.3 pg (27.0-34.0); Mean Corpuscular Volume 67.5 fL (80.0-100.0); Mono # (Auto) 0.5 th/mm3 (0.0-0.9); Mono % (Auto) 8.6 % (0.0-8.0); Neut # (Auto) 3.7 th/mm3 (1.8-7.7); Neut % (Auto) 67.6 % (16.0-70.0); Platelet Count 295 th/mm3 (150-450); Red Blood Count 4.06 mil/mm3 (4.00-5.30); Red Cell Distribution Width 16.7 % (11.6-17.2); White Blood Count 5.4 th/mm3 (4.0-11.0)
[2018-05-09 16:25] LABS: RBC,Urine 0-3 /hpf (0-3); Squamous Epithelial Cell,Urine 0-5 /hpf (0-5)
[2018-05-09 16:28] LABS: Chloride 107 meq/L (98-107); Potassium 3.9 meq/L (3.5-5.1); Sodium 140 meq/L (136-145)
[2018-05-09 16:31] LABS: Calcium 8.3 mg/dL (8.5-10.1)
[2018-05-09 16:32] LABS: Albumin 3.3 g/dL (3.4-5.0); Anion Gap 7 meq/L (5-15); Blood Urea Nitrogen 5 mg/dL (7-18); Carbon Dioxide 26.2 meq/L (21.0-32.0); Glucose,Random 199 mg/dL (74-106)
[2018-05-09 16:35] LABS: Alanine Aminotransferase 14 U/L (10-53); Aspartate Aminotransferase 14 U/L (15-37); Glomerular Filtration Rate Greater Than 89 mL/min (>89)
[2018-05-09 16:37] LABS: Total Protein 7.5 g/dL (6.4-8.2)
[2018-05-09 16:38] LABS: Alkaline Phosphatase 73 U/L (45-117)
[2018-05-09 16:53] LABS: Platelet Estimate Normal (Normal); Platelet Morphology Normal (Normal)
[2018-05-09] MEDS ORDERED: Acetaminophen 325 MG Tablet PO PRN (18:01)
--- NOTE | 2018-05-09 19:12 | P.HPIM ---
History of Present Illness Primary Care Physician: Patient is a 27-year-old female with past medical history of type 1 diabetes ( medtronic paradine - 1.25 units/hr humalog) and iron deficiency anemia requiring iron transfusions (via chest wall port) presenting to emergency department from outpatient hematology infusion center after passing out. Patient reports that she has had menorrhagia for many years and has become transfusion dependent requiring IV iron via a port. Patient reports that at infusion center today she felt very dizzy, lightheadedness, occasionally short of breath, and experienced palpitations prior to losing consciousness for a period of approximately 2 minutes. Patient was transferred to emergency department for further evaluation. At the point at this interview patient still reports noticing vaginal bleeding with clots and says that she is already used 6 pads to this point and has used much more in the past. Patient reports that endometriosis runs in her family and she has a cousin who suffers from it and a grandmother whose endometriosis was so bad that she required a hysterectomy. Patient reports that one year ago she suffered from nosebleeds but has not noticed that in recent months. Patient reports that her mother has a bleeding disorder but is unable to characterize exactly what it is. Patient reports that she did not have any blood in her stool, hematemesis, or remember noticing any oozing from peripheral IV sites when she has been in hospitals for other reasons In emergency department patient was found with hemoglobin 8.2 with blood counts one year ago approximately 12-13. Emergency department ordered 2 units packed red blood cells for transfusion and medicine was called for evaluation. Allergy: Morphine (hives/reading difficulty close parentheses, Benadryl, SSRI ( acute psychosis Social history: No smoking. Social alcohol take beer. Patient lives with her family. Surgical history: 3 , gallbladder removal, port placement and chest wall for iron infusion. Family history: Mother: Bleeding disorder (patient on sure of diagnosis close parentheses Medical history: Type 1 diabetes, VSD, arthritis, fibromyalgia Medication: Insulin (Humalog), Geodon 20 mg twice daily, vitamin D Diagnosis (1) Anxiety and depression: Review of Systems Review of Systems: all other systems reviewed are negative [facility] Medical History Medical History Anemia (Acute) Anxiety (Acute) Asthma (Acute) Depression (Acute) Diabetes type I (Acute) Elevated lipids (Acute) Fibromyalgia (Acute) Injury, self-inflicted (Acute) Insulin pump in place (Acute) PTSD (post-traumatic stress disorder) (Acute) Port-A-Cath in place (Acute) Suicide ideation (Acute) Surgical History Surgical History History of section (Acute) Hx of cholecystectomy (Acute) Social History Social History Substance History: No History of Abuse Second Hand Smoke Exposure: No Smoking Status: Never smoker How Often Do You Have a Drink Containing Alcohol: 2 to 4 times a month Hx Recent Travel: No Recent Out of Country Travel within the Last 8 Weeks: No Immunization History Tetanus Immunization: <5 Years Medications and Allergies Allergies Allergy/AdvReac Type Severity Reaction Status Date / Time diphenhydramine Allergy Severe Tachycardia Verified 05/09/18 15:33 sertraline Allergy Severe Hallucinati Verified 05/09/18 15:33 ons morphine Allergy Unknown hives Verified 05/09/18 15:33 Home Medications Medication Instructions Recorded Confirmed Type insulin lispro [Humalog U-100 1 sliding scale dose SUB-Q UD 01/31/18 05/09/18 History Insulin] ziprasidone HCl [Geodon] 20 mg PO BID 05/09/18 05/09/18 History Active Medications: Active Medications Acetaminophen (Tylenol) 650 mg PO Q4H PRN PRN Reason: Temp > 100.4 Ondansetron HCl (Zofran Inj) 4 mg IV.PUSH Q6H PRN PRN Reason: NAUSEA OR VOMITING Sodium Chloride (Ns Flush) 2 ml IV.FLUSH PRN PRN PRN Reason: FLUSH AFTER USING IV ACCESS Sodium Chloride (Ns Flush) 2 ml IV.FLUSH BID SILVINA Sodium Chloride (Ns Flush) 2 ml IV.FLUSH PRN PRN PRN Reason: FLUSH AFTER USING IV ACCESS Physical Exam Vital signs: Last Vital Signs Temp 98.2 F 05/09/18 15:31 Pulse 85 05/09/18 18:44 Resp 18 05/09/18 18:44 BP 117/61 05/09/18 18:44 Pulse Ox 99 05/09/18 18:44 Intake & Output 05/07/18 05/08/18 05/09/18 05/10/18 06:59 06:59 06:59 06:59 Weight 68.039 kg General: No acute distress, conversational HEENT: EOMI, PERRLA, no conjunctival pallor Cardiovascular: S1/S2. VSD murmur. No tachycardia Respiratory: Clear to auscultation anteriorly and posteriorly Gastro-intestinal: Soft, tender to palpation particularly in lower bilateral quadrants, nondistended, no guarding or rebound Extremity: No calf tenderness, no edema PERSONNEL ADMINISTRATOR: + clots, + bleeding Vascular: Capillary refill less than 2 seconds Results Labs CBC & Chem 7: 05/09/18 16:00 05/09/18 16:00 Caprini VTE Risk Assessment Caprin VTE Risk Assessment: No/Low Risk (score <= 1) Caprini Risk Assessment Model: Point Value = 1 Point Value = 2 Point Value = 3 Point Value = 5 Age 41-60 Minor surgery BMI > 25 kg/m2 Swollen legs Varicose veins or History of unexplained or recurrent spontaneous Oral contraceptives or hormone replacement Sepsis (< 1 month) Serious lung disease, including pneumonia (< 1 month) Abnormal pulmonary function Acute myocardial infarction Congestive heart failure (< 1 month) History of inflammatory bowel disease Medical patient at bed rest Age 61-74 Arthroscopic surgery Major open surgery (> 45 min) Laparoscopic surgery (> 45 min) Malignancy Confined to bed (> 72 hours) Immobilizing plaster cast Central venous access Age >= 75 History of VTE Family history of VTE Factor V Leiden Prothrombin [id number] Lupus anticoagulant Anticardiolipin antibodies Elevated serum homocysteine Heparin-induced thrombocytopenia Other congenital or acquired thrombophilia Stroke (< 1 month) Elective arthroplasty Hip, pelvis, or leg fracture Acute spinal cord injury (< 1 month) Prophylaxis Regimen: Total Risk Factor Score Risk Level Prophylaxis Regimen 0-1 Low Early ambulation 2 Moderate Order ONE of the following: *Sequential Compression Device (SCD) *Heparin 5000 units SQ BID 3-4 Higher Order ONE of the following medications: *Heparin 5000 units SQ TID *Enoxaparin/Lovenox 40 mg SQ daily (WT < 150 kg, CrCl > 30 mL/min) *Enoxaparin/Lovenox 30 mg SQ daily (WT < 150 kg, CrCl > 10-29 mL/min) *Enoxaparin/Lovenox 30 mg SQ BID (WT < 150 kg, CrCl > 30 mL/min) AND/OR *Sequential Compression Device (SCD) 5 or more Highest Order ONE of the following medications: *Heparin 5000 units SQ TID (Preferred with Epidurals) *Enoxaparin/Lovenox 40 mg SQ daily (WT < 150 kg, CrCl > 30 mL/min) *Enoxaparin/Lovenox 30 mg SQ daily (WT < 150 kg, CrCl > 10-29 mL/min) *Enoxaparin/Lovenox 30 mg SQ BID (WT < 150 kg, CrCl > 30 mL/min) AND *Sequential Compression Device (SCD) Assessment and Plan (1) Anxiety and depression: Code(s): F41.9 - Anxiety disorder, unspecified; F32.9 - Major depressive disorder, single episode, unspecified Status: Acute Plan Hematology/PERSONNEL ADMINISTRATOR: Iron deficiency anemia - Suspect a pension adviser etiology of bleeding vs GI. MCV 67 with history of transfusion dependent anemia. Iron studies pending. fibrinogen, PT/PTT and D-dimer normal, unlikely DIC. 2 units packed red blood cells to be transfused. Blood is in transport from main hospital and not expected to arrive yet. Maintain active type and screen, CBC in the morning -Given family history of endometriosis and iron deficiency anemia from presumed bleeding from vaginal source will recommend patient have PERSONNEL ADMINISTRATOR evaluation Patient reports history of having 2 periods each month with the conclusion of one followed shortly thereafter by a second. Endocrinology: Type 1 diabetes Patient basal rate 1.25 units/h of Humalog. Medtronic device. Patient last change site on 1 day prior to admission. Patient reports that she changes sites every 3 days. Patient is comfortable calorie counting for herself and prefers to keep insulin pump on. - Diabetic diet w/ calorie counting by patient. Psychiatry: Anxiety and depression Continue Geodon 20mg bid CODE STATUS: Full code DVT prophylaxis SCD Disposition: MedSurg Diet: Diabetic Plan discussed with patient in detail with the bedside.
[2018-05-09 19:21] LABS: Activated Partial Thrombo Time 20.2 sec (23.4-31.7); INR 1.1 Ratio; Prothrombin Time 10.9 sec (9.8-11.6)
[2018-05-09] MEDS ORDERED: Dextrose 50% in Water 50 ML Vial IV.PUSH PRN (19:29)
[2018-05-09] MEDS ORDERED: INSULIN LISPRO SLIDING SCALE SQ SCH (19:30)
[2018-05-09] MEDS ORDERED: Insulin NovoLOG Aspart Correctional Sugar Inj SQ SCH (19:45)
--- NOTE | 2018-05-09 20:50 | CT ---
EXAM DATE: 05/09/2018 8:43 PM EST AGE/SEX: 27 years / Female INDICATIONS: Syncopal episode. Excessive vaginal bleeding. Evaluate for evidence of fibroids. CLINICAL DATA: This is the patient's initial encounter. Patient reports that signs and symptoms have been present for 1 day and indicates a pain score of 2/10. MEDICAL/SURGICAL HISTORY: Asthma. Diabetes. section. Cholecystectomy. RADIATION DOSE: 17.06 CTDI (mGy) COMPARISON: . TECHNIQUE: Multiple contiguous axial images were obtained through the pelvis without contrast. Imag es were obtained using multiple row detector helical technique. . Using automated exposure control an d adjustment of the mA and/or kV according to patient size, radiation dose was kept as low as reasona sary achievable to obtain optimal diagnostic quality images. DICOM format image data is available lizette ctronically for review and comparison. FINDINGS: Bowel/Mesentery: The bowel loops are grossly unremarkable. The sigmoid colon has a normal configura tion. Bladder: Contours are smooth. Retroperitoneum: No evidence of deep pelvic adenopathy. Reproductive Organs: No abnormal masses or calcifications seen. TYPE CLIPS ARE NOTED BILATERALLY. Inguinal: The inguinal region is unremarkable without evidence of adenopathy. Bony Structures: Unremarkable. CONCLUSION: 1. The uterus appears unremarkable on this noncontrast study. Ultrasound is significantly more sensi tive for detection of leiomyoma versus noncontrast CT. 2. Bilateral Hulka type clips in the pelvis. Electronically signed by: Mac Hansen MD 05/09/2018 8:49 PM EST
[2018-05-09 22:39] LABS: Hematocrit 29.6 % (35.0-46.0); Hemoglobin 8.9 gm/dL (11.6-15.3)
--- NOTE | 2018-05-09 23:16 | P.PNADD ---
Addendum to Inpatient Note Reason for Addendum: Additional Documentation Additional information: Discussed with ER physician, Dr. Rose. H&H actually improved slightly with hgb 8.2 on admission and now 8.9. The patient's vital signs are stable and she has indicated to the bedside RN that she previously went into respiratory distress during a prior transfusion and there may have been an allergic component to the reaction. Dr. Rose agrees with me that holding off on a blood transfusion is in the patient's best interest at this time. Her next H&H is at 0400 tomorrow and the hospitalist team will follow the results. Dr. Rose also recommended supplemental iron overnight and I agree. He also recommended hematology consultation which I will defer to the [place] hospitalist team to decide upon.
[2018-05-10] MEDS ORDERED: Heparin Central Flush 100 UNIT/ML 5 ML Vial IV.FLUSH PRN (03:35)
[2018-05-10 04:14] LABS: Reticulocyte Percent 1.2 % (0.4-3.0)
[2018-05-10 04:33] LABS: % Iron Saturation 3.4 % (20-50)
[2018-05-10 04:45] LABS: Hematocrit 27.8 % (35.0-46.0); Hemoglobin 8.3 gm/dL (11.6-15.3)
[2018-05-10] MEDS: Heparin Central Flush 100 UNIT/ML 5 ML Vial IV.FLUSH PRN ×2 (05:33→20:54)
[2018-05-10] MEDS ORDERED: Sodium Chlor 0.9% Inj 250 ML IV.SIG SCH (08:00)
[2018-05-10 08:12] LABS: Baso # (Auto) 0.1 th/mm3 (0.0-0.2); Baso % (Auto) 1.3 % (0.0-2.0); Eos # (Auto) 0.2 th/mm3 (0.0-0.4); Eos % (Auto) 3.9 % (0.0-4.0); Hemoglobin 8.4 gm/dL (11.6-15.3); Lymph # (Auto) 1.8 th/mm3 (1.0-4.8); Lymph % (Auto) 36.3 % (9.0-44.0); Mean Corpuscular Hemoglobin 20.3 pg (27.0-34.0); Mean Corpuscular Volume 67.7 fL (80.0-100.0); Mean Platelet Volume 8.8 fL (7.0-11.0); Mono # (Auto) 0.6 th/mm3 (0.0-0.9); Mono % (Auto) 10.9 % (0.0-8.0); Neut # (Auto) 2.4 th/mm3 (1.8-7.7); Neut % (Auto) 47.6 % (16.0-70.0); Platelet Count 296 th/mm3 (150-450); Red Blood Count 4.14 mil/mm3 (4.00-5.30); Red Cell Distribution Width 16.5 % (11.6-17.2); White Blood Count 5.1 th/mm3 (4.0-11.0)
[2018-05-10 08:56] LABS: Platelet Estimate Normal (Normal); Platelet Morphology Normal (Normal)
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
--- NOTE | 2018-05-10 12:48 | ECG ---
Date Performed: 05/09/2018 Time Performed: 16:01:11 PTAGE: 27 years EKG: Sinus rhythm WITH SINUS ARRHYTHMIA NORMAL ECG Since the PREVIOUS TRACING , no significant change noted PREVIOUS TRACIN04/21/2018 23.16 DOCTOR: Lalo Nuñez Interpretating Date/Time 05/10/2018 12:48:08
--- NOTE | 2018-05-10 16:31 | US ---
EXAM DATE: 05/10/2018 4:16 PM EST AGE/SEX: 27 years / Female INDICATIONS: Menorrhagia. Evaluate endometrium. CLINICAL DATA: This is the patient's subsequent encounter. Patient reports that signs and symptoms h ave been present for 2 days and indicates a pain score of 0/10. MEDICAL/SURGICAL HISTORY: . Anemmia. Depression. Diabetic. Fibromyalgia. PTSD. se ction. Tubal ligation. Cholecystectomy. Insulin pump. Portacath placement. COMPARISON: [facility], CT PELVIS W/O CONTRAST, 05/09/2018. . MEASUREMENTS: Uterus:__10.5 x 5.6 x 4.6 cm Endometrial Stripe:__8 mm Right Ovary:__ 4.2 x 2.3 x 3.0 cm Left Ovary:__ . Not visualized. FINDINGS: Uterus: The myometrium has homogeneous echotexture without mass. Endometrial Stripe: The endometrial stripe displays homogeneous echotexture. Right Ovary: Ovary contains no mass or significant cystic lesion. Left Ovary: Not visualized. Fluid: No free fluid. Other: None. CONCLUSION: 1. Unremarkable uterus and endometrium. 2. Unremarkable right ovary. 3. Nonvisualization of the left ovary. 4. No free fluid within the cul-de-sac or adnexal mass. Electronically signed by: Marvin Sims MD 05/10/2018 4:30 PM EST
[2018-05-10] MEDS ORDERED: Ferrous Sulfate 325 MG Tablet PO ONE (23:17)
[2018-05-11 08:32] LABS: Hematocrit 40.5 % (35.0-46.0); Hemoglobin 12.5 gm/dL (11.6-15.3); Mean Corpuscular Hemoglobin 22.6 pg (27.0-34.0); Mean Corpuscular Volume 73.5 fL (80.0-100.0); Mean Platelet Volume 9.9 fL (7.0-11.0); Platelet Count 315 th/mm3 (150-450); Red Blood Count 5.51 mil/mm3 (4.00-5.30); Red Cell Distribution Width 19.1 % (11.6-17.2)
[2018-05-11 08:51] LABS: Chloride 105 meq/L (98-107); Potassium 3.9 meq/L (3.5-5.1); Sodium 139 meq/L (136-145)
[2018-05-11 08:52] LABS: Mean Corpuscular HGB Conc 30.8 % (32.0-36.0)
[2018-05-11 08:54] LABS: Calcium 8.9 mg/dL (8.5-10.1)
[2018-05-11 08:55] LABS: Anion Gap 7 meq/L (5-15); Blood Urea Nitrogen 12 mg/dL (7-18); Carbon Dioxide 26.7 meq/L (21.0-32.0); Glucose,Random 231 mg/dL (74-106)
[2018-05-11 08:58] LABS: Glomerular Filtration Rate Greater Than 89 mL/min (>89)
[2018-05-11 09:28] VITALS: BP 129/69; PULSE 87; RESP 16; TEMP 97.8; O2SAT 97
== END 2018-05-11 13:08 | disposition home or self-care (01) ==
LOC: PHEDA 15:28 → PHED 15:28 → OBSVTOIN 18:01 → PHEDA 20:33 → PH3 20:42
PROVIDERS: ADMIT Internal Medicine; ATTEND Internal Medicine
DX: Z83.2 Family history of diseases of the blood and blood-forming organs and certain disorders involving the immune mechanism; N92.1 Excessive and frequent menstruation with irregular cycle; J45.909 Unspecified asthma, uncomplicated; D50.9 Iron deficiency anemia, unspecified; Z79.899 Other long term (current) drug therapy; Z96.41 Presence of insulin pump (external) (internal); M79.7 Fibromyalgia; F32.9 Major depressive disorder, single episode, unspecified; F43.10 Post-traumatic stress disorder, unspecified; Z62.810 Personal history of physical and sexual abuse in childhood; F41.9 Anxiety disorder, unspecified; M19.90 Unspecified osteoarthritis, unspecified site; R55 Syncope and collapse; E10.9 Type 1 diabetes mellitus without complications; N94.5 Secondary dysmenorrhea; Z90.49 Acquired absence of other specified parts of digestive tract